=== PATIENT | male | born 1950 | race Caucasian/White ===

== ENCOUNTER 2018-12-28 12:28 | Emergency (ER) | payer MEDICARE ==
[~2018-12-28] VITALS: Ht 177.8 cm; Wt 81.7 kg
[~2018-12-28 12:28] MED LIST: Percocet 5-3251 EACH PO; Prednisone20 MG PO; Zithromax250 MG PO
[2018-12-28 12:57] LABS: BASOPHILS PERCENT AUTO 1 % (0-2); EOSINOPHILS ABSOLUTE AUTO 0.27 K/mm3 (0.00-0.68); EOSINOPHILS PERCENT AUTO 2 % (0-6); Hematocrit 51.1 % (37.0-53.0); Hemoglobin 17.2 g/dL (13.5-17.5); IMMATURE GRAN ABSOLUTE AUTO 0.07 K/mm3 (0.00-0.10); IMMATURE GRAN PERCENT AUTO 0 % (0-1); LYMPHOCYTES ABSOLUTE AUTO 5.17 K/mm3 (0.84-5.20); LYMPHOCYTES PERCENT AUTO 32 % (21-46); MONOCYTES ABSOLUTE AUTO 1.35 K/mm3 (0.16-1.47); MONOCYTES PERCENT AUTO 8 % (4-13); Mean Corpuscular HGB 29.7 pg (26.0-34.0); Mean Corpuscular HGB Conc 33.7 g/dL (31.5-36.5); Mean Corpuscular Volume 88 fL (80-100); Mean Platelet Volume 10.5 fL (9.1-12.4); NEUTROPHILS ABSOLUTE AUTO 9.04 K/mm3 (1.96-9.15); NEUTROPHILS PERCENT AUTO 57 % (41-73); Platelet Count 326 K/mm3 (150-400); RDW Coefficient Variation 13.9 % (11.7-14.2); RDW Standard Deviation 44.9 fL (35.1-46.3)
[2018-12-28 13:00] LABS: Calcium, Ionized (POC) 1.04 mmol/L (1.10-1.46); Chloride (POC) 109 mmol/L (98-108); Creatinine (POC) 1.6 mg/dL (0.8-1.3); Glucose (ISTAT POC) 113 mg/dL (70-99); Hemoglobin (POC) 17.7 g/dL (13.5-17.5); Potassium (POC) 3.6 mmol/L (3.5-5.5); Sodium (POC) 140 mmol/L (135-148); Total CO2 (POC) 20 mmol/L (21-32)
== END 2018-12-28 15:13 | disposition home or self-care (01) ==
LOC: ER 12:28
PROVIDERS: Physician Assistant
DX: I48.91 Unspecified atrial fibrillation (principal); E86.0 Dehydration; Z88.0 Allergy status to penicillin; F17.290 Nicotine dependence, other tobacco product, uncomplicated
CPT/HCPCS: 36415; 71045; 80047; 84484; 85014; 85025; 93005; 93010; 96361; 96374; 99285-25; J7030

== ENCOUNTER 2020-08-15 20:23 | Emergency (ER) | payer MEDICARE ==
[~2020-08-15] VITALS: Ht 180.3 cm; Wt 79.4 kg
[2020-08-15 20:58] LABS: BASOPHILS ABSOLUTE AUTO 0.08 K/mm3 (0.00-0.23); BASOPHILS PERCENT AUTO 1 % (0-2); EOSINOPHILS ABSOLUTE AUTO 0.28 K/mm3 (0.00-0.68); EOSINOPHILS PERCENT AUTO 2 % (0-6); Hematocrit 48.2 % (37.0-53.0); Hemoglobin 16.3 g/dL (13.5-17.5); IMMATURE GRAN ABSOLUTE AUTO 0.05 K/mm3 (0.00-0.10); IMMATURE GRAN PERCENT AUTO 0 % (0-1); LYMPHOCYTES ABSOLUTE AUTO 3.37 K/mm3 (0.84-5.20); LYMPHOCYTES PERCENT AUTO 29 % (21-46); MONOCYTES ABSOLUTE AUTO 1.11 K/mm3 (0.16-1.47); MONOCYTES PERCENT AUTO 10 % (4-13); Mean Corpuscular HGB 29.2 pg (26.0-34.0); Mean Corpuscular HGB Conc 33.8 g/dL (31.5-36.5); Mean Corpuscular Volume 86 fL (80-100); Mean Platelet Volume 10.7 fL (9.1-12.4); NEUTROPHILS PERCENT AUTO 58 % (41-73); Platelet Count 260 K/mm3 (150-400); RDW Coefficient Variation 14.1 % (11.7-14.2); RDW Standard Deviation 44.5 fL (35.1-46.3); Red Blood Cell Count 5.58 M/mm3 (4.30-5.90); White Blood Cell Count 11.59 K/mm3 (4.00-11.30)
[2020-08-15 21:17] LABS: Albumin, Blood 3.9 g/dL (3.4-5.0); Albumin/Globulin Ratio 1.1 (0.8-1.8); Bilirubin, Total 0.5 mg/dL (0.1-1.0); Bun/Creatinine Ratio 15.9 (12.0-20.0); Calcium, Blood 9.2 mg/dL (8.5-10.1); Creatinine, Blood 1.38 mg/dL (0.60-1.20); Globulin, Blood 3.7 g/dL (2.2-4.0); Total Protein, Blood 7.6 g/dL (6.4-8.2); Troponin I 0.027 ng/mL (0.000-0.040)
[2020-08-15 21:29] LABS: Magnesium, Blood 2.5 mg/dL (1.6-2.4)
== END 2020-08-16 00:25 | disposition home or self-care (01) ==
LOC: ER 20:23
PROVIDERS: Physician Assistant
DX: I48.0 Paroxysmal atrial fibrillation (principal); I49.1 Atrial premature depolarization; I70.90 Unspecified atherosclerosis; F17.290 Nicotine dependence, other tobacco product, uncomplicated; Z88.0 Allergy status to penicillin
CPT/HCPCS: 36415; 71045; 80053; 83735; 83880; 84484; 85025; 93005; 93010; 96360; 99285-25; J7120

== ENCOUNTER 2022-03-11 12:43 | Inpatient (IN) | payer MEDICARE, MEDICAID ==
[~2022-03-11] VITALS: Ht 177.8 cm; Wt 72.6 kg
[2022-03-11] MEDS ORDERED: LISI20 PO (13:10)
[2022-03-11] MEDS ORDERED: CARVEDILOL6.25 MG PO (13:10)
[2022-03-11] MEDS ORDERED: ATORVASTATIN CA20 MG PO (13:10)
[2022-03-11 16:26] LABS: Hemoglobin 14.2 g/dL (13.5-17.5); Mean Corpuscular HGB 29.1 pg (26.0-34.0); Mean Corpuscular Volume 88 fL (80-100); Mean Platelet Volume 10.6 fL (9.1-12.4); Platelet Count 227 K/mm3 (150-400); RDW Coefficient Variation 13.6 % (11.7-14.2); RDW Standard Deviation 43.9 fL (35.1-46.3); Red Blood Cell Count 4.88 M/mm3 (4.30-5.90); White Blood Cell Count 17.39 K/mm3 (4.00-11.30)
[2022-03-11 16:45] LABS: International Normalized Ratio 1.05
[2022-03-11 17:29] LABS: Adenovirus Not Detected (NOT DETECT); Bordetella pertussis Not Detected (NOT DETECT); Chlamydophila pneumoniae Not Detected (NOT DETECT); Coronavirus 229E Not Detected (NOT DETECT); Coronavirus HKU1 Not Detected (NOT DETECT); Coronavirus NL63 Not Detected (NOT DETECT); Coronavirus OC43 Not Detected (NOT DETECT); Human Metapneumovirus Not Detected (NOT DETECT); Human Rhinovirus/Enterovirus Detected (NOT DETECT); Influenza A/2009-H1 Not Detected (NOT DETECT); Influenza A/H1 Not Detected (NOT DETECT); Influenza A/H3 Not Detected (NOT DETECT); Influenza B Not Detected (NOT DETECT); Mycoplasma pneumoniae Not Detected (NOT DETECT); Parainfluenza Virus 1 Not Detected (NOT DETECT); Parainfluenza Virus 2 Not Detected (NOT DETECT); Parainfluenza Virus 3 Not Detected (NOT DETECT); Parainfluenza Virus 4 Not Detected (NOT DETECT); Respiratory Syncytial Virus Not Detected (NOT DETECT); SARS-Cov-2 (COVID-19), BioFire Not Detected (NOT DETECT)
[2022-03-11 18:12] LABS: Bun/Creatinine Ratio 17.2 (12.0-20.0); Calcium, Blood 9.4 mg/dL (8.5-10.1); Creatinine, Blood 1.22 mg/dL (0.60-1.20); Potassium, Blood 4.2 mmol/L (3.5-5.5)
--- NOTE | 2022-03-11 19:22 | NUR ---
ARRIVAL TO UNIT PATIENT ARRIVED TO UNIT AT 1810 FROM ER ON [facility]. ALERT AND ORIENTED. SLIDE TRANSFERRED TO BED. LEFT HIP FRACTURE PAINFUL. MEDICATED WITH 50 MCG FENTANYL. STATES HE HAS HAD A COUGH AND CONGESTION FOR ABOUT 1 MONTH. RESP PANEL REVEALED POSITIVE RHINO VIRUS. PLACED IN DROPLET PRECAUTIONS. LUNG SOUNDS WHEEZY, NEB TREATMENTS ORDERED. WILL BE NPO AFTER MIDNIGHT FOR POSSIBLE SURGICAL REPAIR OF LEFT HIP WITH DR WALTON TOMORROW 03/12/22. REPORT GIVEN TO SPECIAL EVENT ASSISTANT RN.
--- NOTE | 2022-03-12 04:29 | NUR ---
VSS. PT HAS REMAINED NPO SINCE 0000 IN ANTICIPATION OF GOING TO SURGERY TODAY. CIRCULATION AND SENSATION REMAINS INTACT IN LLE. MILD EXTERNAL ROTATION NOTED. THE PATIENT CAN MOVE THIS EXTREMITY ON COMMAND. PAIN HAS BEEN TX WITH TYLENOL AND OXY. IV FLUIDS RUNNING. THE PATIENT IS CURRENTLY SLEEPING, IN NO DISTRESS, CALL LIGHT IN REACH.
--- NOTE | 2022-03-12 13:01 | NUR ---
SURGERY POSTPONED D/T HYPERTENSION PER DR. HERCULES; DR. WILSON NOTIFIED & IN AGREEMENT. NO NEW ORDERS.
--- NOTE | 2022-03-12 17:08 | NUR ---
SHIFT SUMMARY PT'S SURGERY CANCLED TODAY DUE TO HTN, ORDERS RECIEVED FROM MD FOR HYDRALAZINE IF SYSTOLIC BP GREATER THAN 185. UPON ARRIVAL BACK TO UNIT AND SINCE THEN PT SYSTOLIC BP IN 150'S. MEDICATED FOR PAIN ONCE THIS SHIFT, PT HAS CONTINUED TO REPORT PAIN TOLERABLE. PLAN IS FOR PT TO GO TO OR TOMORROW IF BP MANAGED.
--- NOTE | 2022-03-13 04:00 | NUR ---
VSS. NO ACUTE CHANGES T/O THE NIGHT. THE PT SLEPT WELL T/O THE NIGHT. MEDICATED FOR PAIN WITH OXY AND TYLENOL AT THE BEGINNING OF SHIFT. HAS BEEN NPO SINCE 0000 IN ANTICIPATION OF HAVING A LEFT HIP REPAIR. CIRCULATION AND SENSATION REMAINS INTACT. THE PATIENT IS CURRENTLY SLEEPING, IN NO DISTRESS. CALL LIGHT IN REACH.
--- NOTE | 2022-03-13 06:10 | NUR ---
BLOOD PRESSURE DR. PEDROZA NOTIFIED OF THE PATIENTS BLOOD PRESSURE OF 198/104, OBTAINED FORDER DAVID D/C IV FLUID AND OTD OF HYDRALAZINE.
--- NOTE | 2022-03-13 10:37 | NUR ---
BLOOD PRESSURE: PT HAS HAD SOME ANXIETY THIS AM REGARDING BLOOD PRESSURE AND POSSIBLE SURGERY. PT EXPRESSED INTEREST IN TRANSFER TO [facility] TO SEE HIS FIRST AID TRAINER THERE. BP REMAINS ELEVATED. PT HAS BEEN GIVEN ALL MEDS AVAILABLE. CALL PLACED TO HOSPITALIST WELL [employer]DNANCE [employer]UCK INSTALLATION SUPERVISOR ORTHO TO DISCUSS PLAN OF CARE. WILL AWAIT RETURNED CALLS.
--- NOTE | 2022-03-13 12:30 | NUR ---
SURGERY: PT TO DAY SURGERY. COMPLETED SURGICAL PKT. PT NEEDS 18G IV. PT HAS HAD BETA DANIELA THIS AM AND BP IMPROVED AFTER ONE TIME HYDRALAZINE. PT MEDICATED PER EMAR FOR PAIN PRIOR TO LEAVING FLOOR. WILL CONT TO MONITOR WHEN PT RETURNS TO ROOM POST OP.
--- NOTE | 2022-03-13 18:15 | NUR ---
PT RETURNED TO ROOM POST OP. VSS. DENIES PAIN. AQUACEL TO LEFT HIP, CDI. CIRC AND SENSATION WNL. PT REPORTS SLIGHT NAUSEA. TXA STARTED. ICE WATER GIVEN. PAS AND TEDS TO BLE. CALL LIGHT IN REACH. WILL CONT TO MONITOR AND REPORT TO NOC RN.
--- NOTE | 2022-03-14 05:09 | NUR ---
SHIFT SUMMARY PT POD 0 LEFT TOTAL HIP, OVERALL PT HAS DONE WELL OVERNIGHT. HE HAD SOME POST OP N/V THAT HAS SINCE RESOLVED. PT TOELRATING PO INTAKE AT THIS TIME. PT DENIES PAIN ALL SHIFT. VODIDING WITHOUT DIFFICULTY. PT REPORTS TINGLING IN LLE, BUT DOES NOT REPORT NUMBESS. DRESSING INTACT TO LEFT HIP. POST OP VITALS STABLE. BED IN LOWEST POSITION, CALL LIGHT WITHIN REACH.
[2022-03-14 08:39] LABS: Hematocrit 36.5 % (37.0-53.0); Mean Corpuscular HGB 29.1 pg (26.0-34.0); Mean Corpuscular HGB Conc 32.9 g/dL (31.5-36.5); Mean Corpuscular Volume 89 fL (80-100); Mean Platelet Volume 11.1 fL (9.1-12.4); Platelet Count 204 K/mm3 (150-400); RDW Coefficient Variation 14.6 % (11.7-14.2); RDW Standard Deviation 47.1 fL (35.1-46.3); Red Blood Cell Count 4.12 M/mm3 (4.30-5.90); White Blood Cell Count 24.77 K/mm3 (4.00-11.30)
[2022-03-14 09:03] LABS: Albumin, Blood 3.1 g/dL (3.4-5.0); Anion Gap 5 mmol/L (6-16); Blood Urea Nitrogen 44 mg/dL (8-24); Bun/Creatinine Ratio 35.5 (12.0-20.0); CO2, Blood 28 mmol/L (21-32); Calcium, Blood 8.4 mg/dL (8.5-10.1); Chloride, Blood 108 mmol/L (98-108); Creatinine, Blood 1.24 mg/dL (0.60-1.20); Glomerular Filtration Rate 62 (60-); Glucose, Blood 133 mg/dL (70-99); Phosphorus, Blood 2.9 mg/dL (2.5-4.9); Potassium, Blood 3.7 mmol/L (3.5-5.5); Sodium, Blood 141 mmol/L (136-145)
--- NOTE | 2022-03-14 16:50 | NUR ---
SHIFT SUMMARY PT A&OX4, VSS/RA, REJI PO, VOIDING, AMB SBA FWW/GB TO BRP/HALLWAY, UP TO CHAIR T/O SHIFT, PAIN MANAGED WITH OXY AND TYLENOL. PT REP BEING UNABLE TO AFFORD ANY SCRIPTS UNTIL WEDNESDAY WHEN HE GETS HIS SOCIAL SECURITY MONEY; ALERTED NURSE TECHNICIAN AND SHE WILL MEET WITH PT AND PARTNER. WILL REPORT TO ELDON GUERRERO RN.
[2022-03-15 04:24] LABS: Hematocrit 33.3 % (37.0-53.0); Hemoglobin 10.8 g/dL (13.5-17.5); Mean Corpuscular HGB Conc 32.4 g/dL (31.5-36.5); Mean Corpuscular Volume 89 fL (80-100); Mean Platelet Volume 11.5 fL (9.1-12.4); Platelet Count 169 K/mm3 (150-400); RDW Coefficient Variation 14.6 % (11.7-14.2); RDW Standard Deviation 47.1 fL (35.1-46.3); Red Blood Cell Count 3.73 M/mm3 (4.30-5.90); White Blood Cell Count 16.14 K/mm3 (4.00-11.30)
--- NOTE | 2022-03-15 04:42 | NUR ---
SHIFT SUMMARY PT A&OX4, PLEASANT AND COOPERATIVE. NO ACUTE CHANGES DURING SHIFT, VSS. MANAGING PAIN PER EMAR. SBA WITH FWW/GB. TOLERATING PO INTAKE. VOIDING WITHOUT DIFFICULTY. AQUACEL DRESSING TO L HIP C/D/I. CALLS APPROPRIATELY, CALL LIGHT WITHIN REACH.
[2022-03-15 04:52] LABS: Albumin, Blood 2.6 g/dL (3.4-5.0); Anion Gap 4 mmol/L (6-16); Blood Urea Nitrogen 40 mg/dL (8-24); Bun/Creatinine Ratio 33.6 (12.0-20.0); CO2, Blood 28 mmol/L (21-32); Calcium, Blood 7.9 mg/dL (8.5-10.1); Chloride, Blood 110 mmol/L (98-108); Creatinine, Blood 1.19 mg/dL (0.60-1.20); Glomerular Filtration Rate 65 (60-); Glucose, Blood 98 mg/dL (70-99); Phosphorus, Blood 2.3 mg/dL (2.5-4.9); Potassium, Blood 3.9 mmol/L (3.5-5.5); Sodium, Blood 142 mmol/L (136-145)
[2022-03-15] MEDS ORDERED: DOCU100 PO (11:53)
[2022-03-15] MEDS ORDERED: MIRALAX17 GM PO (11:54)
[2022-03-15] MEDS ORDERED: FLUTICASONE-SA1 EAC1 INH (11:54)
[2022-03-15] MEDS ORDERED: XARELTO10 M1 PO (11:56)
[2022-03-15] MEDS ORDERED: Percocet 5-3251 EACH PO (12:04)
--- NOTE | 2022-03-15 16:18 | NUR ---
SHIFT SUMMARY PT A&OX4, VSS/RA, UP TO CHAIR T/O SHIFT, AMB FWW HALLWAYS AND TO BRP, VOIDING WELL, PAIN MANAGED WELL WITH OXY AND TYLENOL, REJI. POD2 L CURLY, AQUACEL CDI. UNABLE TO GET ASSISTANCE FOR PT TO DC TODAY AND HE WILL NOT HAVE THE MONEY HE NEEDS TO PAY FOR NARC SCRIPT UNTIL TOMORROW; ALSO NEEDS MONEY FOR GAS FOR TO PICK HIM UP. SOCIAL SECURITY FUNDS WILL BE DEPOSITED BY NOON ON 03/16. MEDS WERE FAXED TO [facility], PT HAS XARELTO COUPON 30 DAY SUPPLY. EDU PT TO FU WITH PCP RE CONTINUED BLOOD THINNER FOR AFIB IF PT CANNOT AFFORD XARELTO. PT NEEDS A FWW. WILL REPORT TO ELDON GUERRERO RN.
--- NOTE | 2022-03-16 05:24 | NUR ---
SHIFT SUMMARY PT A&OX4, PLEASANT AND COOPERATIVE. NO ACUTE CHANGES, VSS. MEDICATED ONCE FOR PAIN THIS SHIFT. SBA WITH FWW. TOLERATING PO INTAKE. VOIDING WELL, THOUGH LAST BM WAS 03/11. [employer] C/D/I. CALLS APPROPRIATELY, CALL LIGHT WITHIN REACH.
--- NOTE | 2022-03-16 11:45 | NUR ---
REVIEWED DC INSTRUCTIONS WAITING FOR RIDE
--- NOTE | 2022-03-16 13:11 | NUR ---
DISCHARGE SCRIPTS CALLED TO [facility] YESTERDAY. HARD SCRIPT FOR PERCOCET & DRSG GIVEN. ESCORTED OUT VIA WC TO PRIVATE CAR.
== END 2022-03-16 13:15 | disposition home or self-care (01) | DRG 522 ==
LOC: ER 12:43 → SURS 16:03
PROVIDERS: Internal Medicine; Nurse Practitioner Acute Care; ADMIT Internal Medicine
PROC: 0SRB0JA Replacement of Left Hip Joint with Synthetic Substitute, Uncemented, Open Approach (ICD-10-PCS; principal; 2022-03-11)
DX: S72.002A Fracture of unspecified part of neck of left femur, initial encounter for closed fracture (principal); J45.901 Unspecified asthma with (acute) exacerbation; I48.92 Unspecified atrial flutter; Z20.822 Contact with and (suspected) exposure to COVID-19; E78.5 Hyperlipidemia, unspecified; I10 Essential (primary) hypertension; T38.0X5A Adverse effect of glucocorticoids and synthetic analogues, initial encounter; D72.828 Other elevated white blood cell count; B97.4 Respiratory syncytial virus as the cause of diseases classified elsewhere; E86.0 Dehydration; J06.9 Acute upper respiratory infection, unspecified; B97.10 Unspecified enterovirus as the cause of diseases classified elsewhere; J44.9 Chronic obstructive pulmonary disease, unspecified; Z95.0 Presence of cardiac pacemaker; Z98.52 Vasectomy status; Z88.0 Allergy status to penicillin; Z79.899 Other long term (current) drug therapy; W01.198A Fall on same level from slipping, tripping and stumbling with subsequent striking against other object, initial encounter; Y92.009 Unspecified place in unspecified non-institutional (private) residence as the place of occurrence of the external cause
CPT/HCPCS: 0202U; 36415; 71045; 73502; 80048; 80069; 85027; 85610; 93005; 93010; 94640; 94664; 94760; 94762; 96374; 96375; 96376; 97110; 97116; 97161; 97530; 99285-25; A9270; C1776; J0171; J0360; J0690; J0735; J1100; J1170; J1885; J2250; J2274; J2370; J2405; J2704; J2795; J2920; J2930; J3010; J7030; J7120

== ENCOUNTER 2022-03-22 15:52 | Emergency (ER) | payer MEDICARE ==
[~2022-03-22] VITALS: Ht 175.3 cm; Wt 77.1 kg
[~2022-03-22 15:52] MED LIST changes: +ATORVASTATIN CA20 MG PO; +CARVEDILOL6.25 MG PO; +DOCU100 PO; +FLUTICASONE-SA1 EAC1 INH; +LISI20 PO; +MIRALAX17 GM PO; +XARELTO10 M1 PO
[2022-03-22 16:46] LABS: BASOPHILS ABSOLUTE AUTO 0.04 K/mm3 (0.00-0.23); BASOPHILS PERCENT AUTO 0 % (0-2); EOSINOPHILS ABSOLUTE AUTO 0.38 K/mm3 (0.00-0.68); EOSINOPHILS PERCENT AUTO 3 % (0-6); Hematocrit 33.1 % (37.0-53.0); Hemoglobin 11.1 g/dL (13.5-17.5); IMMATURE GRAN ABSOLUTE AUTO 0.11 K/mm3 (0.00-0.10); IMMATURE GRAN PERCENT AUTO 1 % (0-1); LYMPHOCYTES ABSOLUTE AUTO 2.77 K/mm3 (0.84-5.20); LYMPHOCYTES PERCENT AUTO 21 % (21-46); MONOCYTES ABSOLUTE AUTO 1.24 K/mm3 (0.16-1.47); MONOCYTES PERCENT AUTO 9 % (4-13); Mean Corpuscular HGB 29.4 pg (26.0-34.0); Mean Corpuscular HGB Conc 33.5 g/dL (31.5-36.5); Mean Corpuscular Volume 88 fL (80-100); Mean Platelet Volume 10.5 fL (9.1-12.4); NEUTROPHILS ABSOLUTE AUTO 8.86 K/mm3 (1.96-9.15); NEUTROPHILS PERCENT AUTO 66 % (41-73); Platelet Count 373 K/mm3 (150-400); RDW Coefficient Variation 13.9 % (11.7-14.2); RDW Standard Deviation 44.1 fL (35.1-46.3); Red Blood Cell Count 3.78 M/mm3 (4.30-5.90)
[2022-03-22 16:50] LABS: Albumin, Blood 2.9 g/dL (3.4-5.0); Albumin/Globulin Ratio 0.8 (0.8-1.8); Bilirubin, Total 0.3 mg/dL (0.1-1.0); Bun/Creatinine Ratio 20.5 (12.0-20.0); Calcium, Blood 8.7 mg/dL (8.5-10.1); Creatinine, Blood 1.27 mg/dL (0.60-1.20); Globulin, Blood 3.6 g/dL (2.2-4.0); Potassium, Blood 4.5 mmol/L (3.5-5.5); Total Protein, Blood 6.5 g/dL (6.4-8.2)
[2022-03-22] MEDS ORDERED: CLOP75 PO (19:05)
== END 2022-03-22 20:25 | disposition home or self-care (01) ==
LOC: ER 15:52
PROVIDERS: Physician Assistant
DX: G45.9 Transient cerebral ischemic attack, unspecified (principal); Z79.899 Other long term (current) drug therapy; Z70.1 Counseling related to patient's sexual behavior and orientation; Z88.0 Allergy status to penicillin
CPT/HCPCS: 36415; 70450; 80053; 85025; 93880; A9270

== ENCOUNTER 2022-09-17 17:05 | Emergency (ER) | payer MEDICARE ==
[~2022-09-17] VITALS: Ht 175.3 cm; Wt 83.9 kg
[~2022-09-17 17:05] MED LIST changes: +CLOP75 PO
[2022-09-17] MEDS ORDERED: ELIQUIS5 M3 PO (17:33)
[2022-09-17 17:42] LABS: BASOPHILS ABSOLUTE AUTO 0.08 K/mm3 (0.00-0.23); BASOPHILS PERCENT AUTO 1 % (0-2); EOSINOPHILS PERCENT AUTO 1 % (0-6); Hematocrit 40.6 % (37.0-53.0); Hemoglobin 13.4 g/dL (13.5-17.5); IMMATURE GRAN ABSOLUTE AUTO 0.03 K/mm3 (0.00-0.10); IMMATURE GRAN PERCENT AUTO 0 % (0-1); LYMPHOCYTES ABSOLUTE AUTO 2.01 K/mm3 (0.84-5.20); LYMPHOCYTES PERCENT AUTO 17 % (21-46); MONOCYTES PERCENT AUTO 8 % (4-13); Mean Corpuscular HGB 28.2 pg (26.0-34.0); Mean Corpuscular Volume 86 fL (80-100); NEUTROPHILS ABSOLUTE AUTO 8.68 K/mm3 (1.96-9.15); NEUTROPHILS PERCENT AUTO 74 % (41-73); Platelet Count 216 K/mm3 (150-400); RDW Standard Deviation 46.8 fL (35.1-46.3); Red Blood Cell Count 4.75 M/mm3 (4.30-5.90)
[2022-09-17 18:02] LABS: Albumin, Blood 3.3 g/dL (3.4-5.0); Albumin/Globulin Ratio 1.1 (0.8-1.8); Bilirubin, Total 0.5 mg/dL (0.1-1.0); Calcium, Blood 8.5 mg/dL (8.5-10.1); Creatinine, Blood 1.59 mg/dL (0.60-1.20); Globulin, Blood 3.1 g/dL (2.2-4.0); Potassium, Blood 4.3 mmol/L (3.5-5.5); Total Protein, Blood 6.4 g/dL (6.4-8.2)
[2022-09-17 21:14] VITALS: BP 138/74
== END 2022-09-17 22:00 | disposition home or self-care (01) ==
LOC: ER 17:05
PROVIDERS: Emergency Medicine
DX: R55 Syncope and collapse (principal); E86.0 Dehydration; F17.290 Nicotine dependence, other tobacco product, uncomplicated; Z79.899 Other long term (current) drug therapy
CPT/HCPCS: 80053; 84484; 85025; 93005; 93010; 99284-25; J7030

== ENCOUNTER 2023-02-21 14:25 | Observation (INO) | payer MEDICARE ==
[~2023-02-21] VITALS: Ht 175.3 cm; Wt 78.0 kg
[~2023-02-21 14:25] MED LIST changes: -ATORVASTATIN CA20 MG PO; +ELIQUIS5 M3 PO; +LIPITOR80 MG PO
[2023-02-21 15:01] LABS: BASOPHILS ABSOLUTE AUTO 0.04 K/mm3 (0.00-0.23); BASOPHILS PERCENT AUTO 0 % (0-2); EOSINOPHILS ABSOLUTE AUTO 0.01 K/mm3 (0.00-0.68); EOSINOPHILS PERCENT AUTO 0 % (0-6); Hematocrit 36.6 % (37.0-53.0); Hemoglobin 12.1 g/dL (13.5-17.5); IMMATURE GRAN ABSOLUTE AUTO 0.04 K/mm3 (0.00-0.10); IMMATURE GRAN PERCENT AUTO 0 % (0-1); LYMPHOCYTES PERCENT AUTO 14 % (21-46); MONOCYTES ABSOLUTE AUTO 1.58 K/mm3 (0.16-1.47); MONOCYTES PERCENT AUTO 17 % (4-13); Mean Corpuscular HGB 29.2 pg (26.0-34.0); Mean Corpuscular HGB Conc 33.1 g/dL (31.5-36.5); Mean Corpuscular Volume 88 fL (80-100); Mean Platelet Volume 12.1 fL (9.1-12.4); NEUTROPHILS ABSOLUTE AUTO 6.44 K/mm3 (1.96-9.15); NEUTROPHILS PERCENT AUTO 69 % (41-73); Platelet Count 202 K/mm3 (150-400); RDW Coefficient Variation 15.5 % (11.7-14.2); RDW Standard Deviation 50.6 fL (35.1-46.3); Red Blood Cell Count 4.14 M/mm3 (4.30-5.90); White Blood Cell Count 9.41 K/mm3 (4.00-11.30)
[2023-02-21 15:13] LABS: Albumin, Blood 3.2 g/dL (3.4-5.0); Bilirubin, Total 0.4 mg/dL (0.1-1.0); Bun/Creatinine Ratio 18.7 (12.0-20.0); Calcium, Blood 8.4 mg/dL (8.5-10.1); Creatinine, Blood 1.87 mg/dL (0.60-1.20); Globulin, Blood 3.2 g/dL (2.2-4.0); Potassium, Blood 3.9 mmol/L (3.5-5.5); Total Protein, Blood 6.4 g/dL (6.4-8.2)
[2023-02-21 21:03] VITALS: BP 191/102
[2023-02-21 22:41] VITALS: BP 168/97
[2023-02-21] MEDS ORDERED: METO50ER PO (23:06)
[2023-02-21] MEDS ORDERED: AMIODARONE HCL200 M1 PO (23:07)
[2023-02-21] MEDS ORDERED: ENTRESTO 24 MG1 EAC3 PO (23:08)
[2023-02-21] MEDS ORDERED: FUROSEMIDE20 MG PO (23:08)
[2023-02-21] MEDS ORDERED: BRILINTA90 M7 PO (23:09)
[2023-02-21] MEDS ORDERED: IRBESARTAN75 M3 PO (23:10)
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
[2023-02-22 05:05] VITALS: BP 181/97
[2023-02-22 05:26] LABS: BASOPHILS ABSOLUTE AUTO 0.04 K/mm3 (0.00-0.23); BASOPHILS PERCENT AUTO 1 % (0-2); EOSINOPHILS ABSOLUTE AUTO 0.01 K/mm3 (0.00-0.68); EOSINOPHILS PERCENT AUTO 0 % (0-6); Hematocrit 36.9 % (37.0-53.0); Hemoglobin 12.1 g/dL (13.5-17.5); IMMATURE GRAN ABSOLUTE AUTO 0.04 K/mm3 (0.00-0.10); IMMATURE GRAN PERCENT AUTO 1 % (0-1); LYMPHOCYTES ABSOLUTE AUTO 2.04 K/mm3 (0.84-5.20); LYMPHOCYTES PERCENT AUTO 25 % (21-46); MONOCYTES ABSOLUTE AUTO 1.31 K/mm3 (0.16-1.47); MONOCYTES PERCENT AUTO 16 % (4-13); Mean Corpuscular HGB 29.1 pg (26.0-34.0); Mean Corpuscular HGB Conc 32.8 g/dL (31.5-36.5); Mean Corpuscular Volume 89 fL (80-100); Mean Platelet Volume 12.2 fL (9.1-12.4); NEUTROPHILS ABSOLUTE AUTO 4.74 K/mm3 (1.96-9.15); NEUTROPHILS PERCENT AUTO 58 % (41-73); Platelet Count 182 K/mm3 (150-400); RDW Coefficient Variation 15.7 % (11.7-14.2); RDW Standard Deviation 51.1 fL (35.1-46.3); Red Blood Cell Count 4.16 M/mm3 (4.30-5.90); White Blood Cell Count 8.18 K/mm3 (4.00-11.30)
[2023-02-22 05:44] VITALS: BP 161/93
[2023-02-22 05:55] LABS: Albumin, Blood 3.1 g/dL (3.4-5.0); Albumin/Globulin Ratio 0.9 (0.8-1.8); Bilirubin, Total 0.4 mg/dL (0.1-1.0); Bun/Creatinine Ratio 23.2 (12.0-20.0); Calcium, Blood 8.3 mg/dL (8.5-10.1); Creatinine, Blood 1.64 mg/dL (0.60-1.20); Globulin, Blood 3.4 g/dL (2.2-4.0); Potassium, Blood 3.8 mmol/L (3.5-5.5); Total Protein, Blood 6.5 g/dL (6.4-8.2)
[2023-02-22 06:41] VITALS: BP 123/71
[2023-02-22 08:33] VITALS: BP 150/84
--- NOTE | 2023-02-22 14:54 | NUR ---
DISCHARGE: PT D/C @1445 VIA WHEELCHAIR WITH . NO NEW MEDICATIONS. ABLE TO TRANSFER INDEPENDENTLY. INFORMED PT NOT TO BE DRIVING UNTIL SEEL BY PRIMARY. PT STATED HE ALREADY HAS APT SET UP WITH PCP. IV REMOVED W/O COMPLICATIONS. TELE SENT BACK.
== END 2023-02-22 14:51 | disposition home or self-care (01) ==
LOC: ER 14:25 → MEDS 18:51
PROVIDERS: Emergency Medicine; ADMIT Internal Medicine
DX: R55 Syncope and collapse (principal); U07.1 COVID-19; I25.10 Atherosclerotic heart disease of native coronary artery without angina pectoris; I13.0 Hypertensive heart and chronic kidney disease with heart failure and stage 1 through stage 4 chronic kidney disease, or unspecified chronic kidney disease; N18.30 Chronic kidney disease, stage 3 unspecified; I50.22 Chronic systolic (congestive) heart failure; E78.5 Hyperlipidemia, unspecified; J44.9 Chronic obstructive pulmonary disease, unspecified; I25.2 Old myocardial infarction; E86.0 Dehydration; Z88.0 Allergy status to penicillin; Z95.0 Presence of cardiac pacemaker
CPT/HCPCS: 36415; 71045; 80053; 83880; 84484; 85025; 93005; 93010; 96360; 96361; 96374; 99285-25; A9270; G0378; J0360; J7030; J7120

== ENCOUNTER 2023-02-24 22:51 | Emergency (ER) | payer MEDICARE ==
[~2023-02-24] VITALS: Ht 175.3 cm; Wt 77.1 kg
[~2023-02-24 22:51] MED LIST changes: +AMIODARONE HCL200 M1 PO; +BRILINTA90 M7 PO; +ENTRESTO 24 MG1 EAC3 PO; +FUROSEMIDE20 MG PO; +IRBESARTAN75 M3 PO; +METO50ER PO
[2023-02-24 23:36] LABS: BASOPHILS ABSOLUTE AUTO 0.03 K/mm3 (0.00-0.23); BASOPHILS PERCENT AUTO 0 % (0-2); EOSINOPHILS ABSOLUTE AUTO 0.14 K/mm3 (0.00-0.68); EOSINOPHILS PERCENT AUTO 2 % (0-6); Hematocrit 37.5 % (37.0-53.0); Hemoglobin 12.4 g/dL (13.5-17.5); IMMATURE GRAN ABSOLUTE AUTO 0.02 K/mm3 (0.00-0.10); IMMATURE GRAN PERCENT AUTO 0 % (0-1); LYMPHOCYTES ABSOLUTE AUTO 2.67 K/mm3 (0.84-5.20); LYMPHOCYTES PERCENT AUTO 29 % (21-46); MONOCYTES ABSOLUTE AUTO 1.02 K/mm3 (0.16-1.47); MONOCYTES PERCENT AUTO 11 % (4-13); Mean Corpuscular HGB 28.9 pg (26.0-34.0); Mean Corpuscular HGB Conc 33.1 g/dL (31.5-36.5); Mean Corpuscular Volume 87 fL (80-100); Mean Platelet Volume 12.2 fL (9.1-12.4); NEUTROPHILS ABSOLUTE AUTO 5.41 K/mm3 (1.96-9.15); NEUTROPHILS PERCENT AUTO 58 % (41-73); Platelet Count 204 K/mm3 (150-400); RDW Coefficient Variation 15.4 % (11.7-14.2); RDW Standard Deviation 49.2 fL (35.1-46.3); Red Blood Cell Count 4.29 M/mm3 (4.30-5.90); White Blood Cell Count 9.29 K/mm3 (4.00-11.30)
[2023-02-24 23:55] LABS: Albumin, Blood 3.4 g/dL (3.4-5.0); Albumin/Globulin Ratio 0.9 (0.8-1.8); Bilirubin, Total 0.6 mg/dL (0.1-1.0); Bun/Creatinine Ratio 16.8 (12.0-20.0); Calcium, Blood 8.2 mg/dL (8.5-10.1); Creatinine, Blood 1.79 mg/dL (0.60-1.20); Globulin, Blood 3.6 g/dL (2.2-4.0); Potassium, Blood 3.9 mmol/L (3.5-5.5)
[2023-02-25] MEDS ORDERED: ALBU90OI INH (02:09)
[2023-02-25] MEDS ORDERED: ACET500 PO (02:09)
[2023-02-25 02:38] VITALS: BP 158/86
== END 2023-02-25 02:42 | disposition home or self-care (01) ==
LOC: ER 22:51
PROVIDERS: Student in an Organized Health Care Education/Training Program
DX: U07.1 COVID-19 (principal); I11.0 Hypertensive heart disease with heart failure; I50.9 Heart failure, unspecified; I25.2 Old myocardial infarction; I48.91 Unspecified atrial fibrillation; J45.909 Unspecified asthma, uncomplicated; F17.290 Nicotine dependence, other tobacco product, uncomplicated; Z79.01 Long term (current) use of anticoagulants; Z79.899 Other long term (current) drug therapy
CPT/HCPCS: 71046; 80053; 84484; 85025; 85379; 85730; 93005; 93010; 94640; 94664; 96361; 96374; 99285-25; A9270; J1100; J7030

== ENCOUNTER 2023-03-17 15:47 | Emergency (ER) | payer MEDICARE ==
[~2023-03-17] VITALS: Ht 175.3 cm; Wt 79.4 kg
[~2023-03-17 15:47] MED LIST changes: +ACET500 PO; +ALBU90OI INH
[2023-03-17 16:26] LABS: BASOPHILS ABSOLUTE AUTO 0.06 K/mm3 (0.00-0.23); BASOPHILS PERCENT AUTO 1 % (0-2); EOSINOPHILS ABSOLUTE AUTO 0.23 K/mm3 (0.00-0.68); EOSINOPHILS PERCENT AUTO 3 % (0-6); Hematocrit 34.6 % (37.0-53.0); Hemoglobin 11.1 g/dL (13.5-17.5); IMMATURE GRAN ABSOLUTE AUTO 0.04 K/mm3 (0.00-0.10); IMMATURE GRAN PERCENT AUTO 1 % (0-1); LYMPHOCYTES ABSOLUTE AUTO 1.32 K/mm3 (0.84-5.20); LYMPHOCYTES PERCENT AUTO 17 % (21-46); MONOCYTES ABSOLUTE AUTO 0.71 K/mm3 (0.16-1.47); MONOCYTES PERCENT AUTO 9 % (4-13); Mean Corpuscular HGB 29.1 pg (26.0-34.0); Mean Corpuscular HGB Conc 32.1 g/dL (31.5-36.5); Mean Corpuscular Volume 91 fL (80-100); Mean Platelet Volume 11.2 fL (9.1-12.4); NEUTROPHILS PERCENT AUTO 69 % (41-73); Platelet Count 304 K/mm3 (150-400); RDW Coefficient Variation 15.5 % (11.7-14.2); Red Blood Cell Count 3.82 M/mm3 (4.30-5.90); White Blood Cell Count 7.66 K/mm3 (4.00-11.30)
[2023-03-17 16:42] LABS: Albumin, Blood 3.2 g/dL (3.4-5.0); Albumin/Globulin Ratio 0.9 (0.8-1.8); Bilirubin, Total 0.4 mg/dL (0.1-1.0); Bun/Creatinine Ratio 16.9 (12.0-20.0); Calcium, Blood 8.8 mg/dL (8.5-10.1); Creatinine, Blood 1.77 mg/dL (0.60-1.20); Globulin, Blood 3.7 g/dL (2.2-4.0); Potassium, Blood 3.9 mmol/L (3.5-5.5); Total Protein, Blood 6.9 g/dL (6.4-8.2)
[2023-03-17 18:43] LABS: Source, Urine Clean Catch
[2023-03-17 18:48] LABS: Bilirubin, Urine Neg (Neg); Blood, Urine Neg (Neg); Color, Urine Yellow (P-Yellow); Glucose Qualitative, Urine Neg (Neg); Ketones, Urine Neg (Neg); Leukocyte Esterase, Urine Neg (Neg); Nitrite, Urine Neg (Neg); Protein, Urine Neg (Neg); Urobilinogen, Urine NORM (Normal)
[2023-03-17 19:00] LABS: Appearance, Urine Hazy (Clear); Red Blood Cells, Urine 0-2 /hpf (0-2); White Blood Cells, Urine 0-2 /hpf (0-5)
[2023-03-17 19:01] LABS: Amorphous Light (0-Heavy); Bacteria Mod /hpf; Granular Casts 0-2 /lpf (0); Mucus Light (0-Heavy); Squamous Epithelial Cells Rare /hpf (Few)
[2023-03-17 19:45] VITALS: BP 126/73
== END 2023-03-17 19:50 | disposition home or self-care (01) ==
LOC: ER 15:47
PROVIDERS: Emergency Medicine
DX: R55 Syncope and collapse (principal); Z88.8 Allergy status to other drugs, medicaments and biological substances; Z88.0 Allergy status to penicillin; Z79.899 Other long term (current) drug therapy; J45.909 Unspecified asthma, uncomplicated; I48.91 Unspecified atrial fibrillation; F17.290 Nicotine dependence, other tobacco product, uncomplicated
CPT/HCPCS: 71046; 80053; 81001; 82947; 84484; 85025; 87086; 93005; 93010; 99285-25; J7030